=== PATIENT | female | born 1985 | race Caucasian/White ===

== ENCOUNTER 2018-06-17 19:00 | Emergency (ER) | payer BC, OTHER ==
--- NOTE | 2018-06-17 19:36 | PDOC ---
History of Present Illness - General History Source: Patient Exam Limitations: No Limitations - History of Present Illness Initial Comments: 06/17/18 20:47 The patient is a 32 year old female, currently with no past medical history, who presents to the emergency department for evaluation of left ankle injury. The patient reports severe left foot pain with associated swelling after falling while going down the stairs this afternoon. She states her heard a crunch after landing on awkwardly on her left foot. Patient denies loss of consciousness or head strike. She states she is able to ambulate, but note it is difficult to bear weight. The patient denies any other injuries, chest pain, shortness of breath, headache , and dizziness. Denies fevers, chills, nausea, vomiting, and any bowel/urinary symptoms. Allergies: Shellfish derived, treenut Social History: No reported alcohol, cigarette, or drug use. Surgical History: Ovarian cyst 2010. PCP: Dr. Gilmore <Ophelia Kelley - Last Filed: 06/17/18 20:47> <Ashley Du - Last Filed: 06/18/18 01:10> - General Chief Complaint: Injury Stated Complaint: LEFT ANKLE INJURY Time Seen by Provider: 06/17/18 19:36 Past History <Ophelia Kelley - Last Filed: 06/17/18 20:47> <Ashley Du - Last Filed: 06/18/18 01:10> - Past Medical History Allergies/Adverse Reactions: Allergies Allergy/AdvReac Type Severity Reaction Status Date / Time shellfish derived Allergy Severe Difficulty Verified 06/17/18 19:33 Breathing tree nut Allergy Severe Difficulty Verified 06/17/18 19:33 Breathing Home Medications: Ambulatory Orders EPINEPHrine (EPI-PEN 0.3MG) [Epipen 0.3MG -] 0.3 mg IM ASDIR 06/17/18 Pnv No.103/Folic/Om3s/Fish Oil [ Gummies] 1 each PO DAILY 06/17/18 Review of Systems - Review of Systems Able to Perform ROS?: Yes Comments:: GENERAL/CONSTITUTIONAL: No fever or chills. No weakness. HEAD, EYES, EARS, NOSE AND THROAT: No change in vision. No ear pain or discharge. No sore throat. CARDIOVASCULAR: No chest pain or shortness of breath. RESPIRATORY: No cough, wheezing, or hemoptysis. GASTROINTESTINAL: No nausea, vomiting, diarrhea or constipation. GENITOURINARY: No dysuria, frequency, or change in urination. MUSCULOSKELETAL: (+)Left ankle pain. (+)Left ankle swelling. No neck or back pain. SKIN: No rash NEUROLOGIC: No headache, vertigo, loss of consciousness, or change in strength/ sensation. ENDOCRINE: No increased thirst. No abnormal weight change. HEMATOLOGIC/LYMPHATIC: No anemia, easy bleeding, or history of blood clots. ALLERGIC/IMMUNOLOGIC: No hives or skin allergy. <Ophelia Kelley - Last Filed: 06/17/18 20:47> *Physical Exam - Vital Signs Last Vital Signs Temp Pulse Resp BP Pulse Ox 98.2 F 100 H 16 119/87 100 06/17/18 19:32 06/17/18 19:32 06/17/18 19:32 06/17/18 19:32 06/17/18 19:32 - Physical Exam Comments: GENERAL: Awake, alert, and fully oriented, in no acute distress HEAD: No signs of trauma EYES: PERRLA, EOMI, sclera anicteric, conjunctiva clear ENT: Auricles normal inspection, hearing grossly normal, nares patent, oropharynx clear without exudates. Moist mucosa NECK: Normal ROM, supple, no lymphadenopathy, JVD, or masses LUNGS: Breath sounds equal, clear to auscultation bilaterally. No wheezes, and no crackles HEART: Regular rate and rhythm, normal S1 and S2, no murmurs, rubs or gallops ABDOMEN: Soft, nontender, normoactive bowel sounds. No guarding, no rebound. No masses EXTREMITIES: (+)Left lateral malleolus tenderness with 3cm radial swelling. (+) Pain at the base of the 5th metatarsal. No clubbing or cyanosis. No cords, erythema, or tenderness NEUROLOGICAL: Cranial nerves II through XII grossly intact. Normal speech, normal gait SKIN: Warm, Dry, normal turgor, no rashes or lesions noted. <Ophelia Kelley - Last Filed: 06/17/18 20:47> ED Treatment Course - Medications Given in the ED: ED Medications Discontinued Medications Generic Name Dose Route Start Last Admin Trade Name Freq PRN Reason Stop Dose Admin Acetaminophen 1,000 mg 06/17/18 20:10 06/17/18 20:21 Tylenol - PO 06/17/18 20:11 1,000 mg ONCE ONE Administration <Ophelia Kelley - Last Filed: 06/17/18 20:47> Medical Decision Making - Medical Decision Making 06/18/18 01:08 Pt everted her left foot and slipped and fell down steps. Now with lateral ankle and foot pain. XRAYS appear normal. SHe has a sprained ankle. SHe was placed in a posterior splint and a hard show. Tylenol only for pain, as she is [address] 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 <Ashley Du - Last Filed: 06/18/18 01:10> *DC/Admit/Observation/Transfer - Attestations Scribe Attestion: Documentation prepared by Ophelia Kelley, acting as medical billing instructor for Ashley Du MD. <Ophelia Kelley - Last Filed: 06/17/18 20:47> - Discharge Dispostion Decision to Admit order: No <Ashley Du - Last Filed: 06/18/18 01:10> Diagnosis at time of Disposition: Ankle sprain - Discharge Dispostion Disposition: HOME Condition at time of disposition: Improved - Referrals Referrals: Cory Gilmore [Primary Care Provider] - Jose Alfredo Yeung MD [Staff Physician] - - Patient Instructions Printed Discharge Instructions: DI for Ankle Sprain - Post Discharge Activity Forms/Work/School Notes: Back to Work
[2018-06-17 19:40] VITALS: BP 119/87; PULSE 100; TEMP 98.2; BMI 19.5
[2018-06-17] MEDS ORDERED: ACETAMINOPHEN 500 MG TABLET (FP) PO ONE (20:10)
[2018-06-17] MEDS ORDERED: ACETAMINOPHEN 500 MG TABLET (FP) ONE (20:20)
== END 2018-06-17 21:02 | disposition home or self-care (01) ==
LOC: FER 19:00
DX: O26.899 Other specified pregnancy related conditions, unspecified trimester (principal); S93.402A Sprain of unspecified ligament of left ankle, initial encounter; W10.9XXA Fall (on) (from) unspecified stairs and steps, initial encounter; Y93.89 Activity, other specified; Y92.9 Unspecified place or not applicable
CPT/HCPCS: 73610-TC-LT-FY; 73630-TC-LT; 99281-25